=== PATIENT | female | born 1970 | race Caucasian/White ===

== ENCOUNTER → 2022-08-09 | Outpatient (CLI) | payer MEDICAID ==
[~2022-08-09] MED LIST: CATHETER FLUSH 10 ML SYR IV PRN; HOLD METFORMIN - RECEIVED CONTRAST 20 ML VIAL IV SCH; IOHEXOL 350 MG/ML 100 ML (OMNIPAQUE 350) VIAL IV ONE; NS 100 ML (IVPB) BAG IV ONE
--- NOTE | 2022-08-09 14:01 | Diagnostic Imaging Report ---
PROCEDURE: CT angiography of the head with and without contrast. TECHNIQUE: Noncontrast CT of the head was obtained. Subsequently, after intravenous administration of contrast, thin section axial CT angiography of the head was performed. Source data was reformatted into multiple MIP reformats. Delayed postcontrast acquisition of the head was also acquired. Auto Exposure Controls were utilized during the CT exam to meet ALARA standards for radiation dose reduction. INDICATION: History of trauma to the right side of the head. Patient complains of left posterior headache for two weeks. COMPARISON: No prior studies are available for comparison. FINDINGS: Precontrast images through the brain demonstrate ventricles and sulci to be within normal limits. No sulcal effacement or midline shift is identified. No acute intra-axial or extra-axial hemorrhage is detected. Cisterns are patent. The visualized paranasal sinuses are clear. Delayed postcontrast images through the brain are unremarkable. CT angiographic portion of the exam demonstrate distal internal carotid arteries as well as distal vertebral arteries to be unremarkable. The basilar artery is patent. The anterior, middle and posterior cerebral arteries are unremarkable. No definite aneurysm, stenosis or vascular malformation is seen. IMPRESSION: Unremarkable CT angiogram of the head. Dictated by: Dictated on workstation # [id number]
== END ==
LOC: RAD 13:45
PROVIDERS: ATTEND Student in an Organized Health Care Education/Training Program
DX: G44.89 Other headache syndrome (principal)
CPT/HCPCS: 70496